=== PATIENT | female | born 1975 | race Caucasian/White ===

== ENCOUNTER 2019-08-04 07:56 | Emergency (ER) | payer BC ==
--- NOTE | 2019-08-04 08:16 | ED ---
HPI Chest Pain - HPI Summary HPI Summary: This pt is a 44 y/o female presenting to [facility] c/o left sided chest pain today. Pt reports last night when she was sleeping she felt "cramps" in her heart. She states when she got up this morning she still had these "cramps." Pt denies pain. She notes she still has the chest cramps today "on and off." Her chest cramps are aggravated with deep breaths. She reports associated symptoms of nausea. Denies diaphoresis, pain or swelling in legs, cough. Pt states she has been under a lot of stress recently because her mom is admitted in the hospital. Pt has been having panic attacks and notes she is SOB "all the time." She takes anti anxiety medications to help her sleep, medication starts with an "X" but can't remember the name. Denies any recent long car rides or recent travel. Denies recent surgeries. Denies taking any hormones. Denies hx of blood clots. Denies any other PMHx. She has never had a stress test of her heart. No FHx of heart disease. NKDA. Denies tobacco or drug use. She admits to drinking 1-2 glasses of wine every night, but has not recently since her mother has been sick. 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 Medications reviewed. Allergies noted. - History of Current Complaint Time Seen by Provider: 08/04/19 08:07 Hx Obtained From: Patient Onset/Duration: Started Hours Ago, Still Present Timing: Lasting Hours Current Severity: Mild Pain Intensity: 3 Pain Scale Used: 0-10 Numeric Chest Pain Location: Left Anterior Chest Pain Radiates: No Character: Other: - cramps Aggravating Factor(s): Deep Breaths Alleviating Factor(s): Nothing Associated Signs and Symptoms: Positive: Chest Pain, Recent Stress, Shortness of Breath, Nausea. Negative: Fever, Chills, Diaphoresis, Cough, Calf Pain/ Swelling, Edema - Allergy/Home Medications Allergies/Adverse Reactions: Allergies Allergy/AdvReac Type Severity Reaction Status Date / Time No Known Allergies Allergy Verified 08/04/19 08:02 Home Medications: Home Medications NK [No Home Medications Reported] 08/04/19 [History Confirmed 08/04/19] PMH/Surg Hx/FS Hx/Imm Hx Endocrine/Hematology History: Denies: Hx Diabetes Cardiovascular History: Denies: Hx Hypertension Musculoskeletal History: Denies: Hx Rheumatoid Arthritis, Hx Osteoporosis Psychiatric History: Reports: Hx Anxiety - Cancer History Hx Chemotherapy: No Hx Radiation Therapy: No - Surgical History Surgical History: Yes Surgery Procedure, Year, and Place: Mole removal Infectious Disease History: No Infectious Disease History: Denies: Traveled Outside the [place] in Last 30 Days - Family History Known Family History: Negative: Cardiac Disease - Social History Alcohol Use: Daily Alcohol Amount: 1-2 glasses of wine every night, but not recently Substance Use Type: Reports: None Smoking Status (MU): Never Smoked Tobacco Review of Systems Negative: Fever, Skin Diaphoresis Positive: Chest Pain Positive: Shortness Of Breath. Negative: Cough Positive: Nausea Negative: Edema, Other - NEGATIVE: pain in legs Positive: Anxious All Other Systems Reviewed And Are Negative: Yes Physical Exam - Summary Physical Exam Summary: Constitutional: Well-developed, Well-nourished, Alert. (-) Distressed Skin: Warm, Dry HENT: Normocephalic; Atraumatic Eyes: Conjunctiva normal Neck: Musculoskeletal ROM normal neck. (-) JVD, (-) Stridor, (-) Tracheal deviation Cardio: Rhythm regular, rate normal, Heart sounds normal; Intact distal pulses; The pedal pulses are 2+ and symmetric. Radial pulses are 2+ and symmetric. (-) Murmur Pulmonary/Chest wall: Effort normal. (-) Respiratory distress, (-) Wheezes, (-) Rales Abd: Soft, (-) tenderness, (-) Distension, (-) Guarding, (-) Rebound Musculoskeletal: (-) Edema. Good pulses bilaterally in radius, No calf tenderness, No venous cords, No pain with dorsiflexion of foot. Lymph: (-) Cervical adenopathy Neuro: Alert, Oriented x3 Psych: Mood and affect Normal Triage Information Reviewed: Yes Vital Signs On Initial Exam: Initial Vitals Temp Pulse Resp BP Pulse Ox 97.7 F 91 20 139/83 100 08/04/19 07:57 08/04/19 07:57 08/04/19 07:57 08/04/19 07:57 08/04/19 07:57 Vital Signs Reviewed: Yes Procedures - Sedation Patient Received Moderate/Deep Sedation with Procedure: No Diagnostics - Vital Signs Vital Signs Temp Pulse Resp BP Pulse Ox 12/20/19 07:57 97.7 F 91 20 139/83 100 - Laboratory Result Diagrams: 08/04/19 08:07 08/04/19 08:07 Lab Statement: Any lab studies that have been ordered have been reviewed, and results considered in the medical decision making process. - Radiology Chest XR Radiology Interpretation Completed By: Radiologist Summary of Radiographic Findings: IMPRESSION: No evidence for active cardiopulmonary disease. Dr. Garica has reviewed this report. - EKG 08:01 Cardiac Rate: NL - at 76 bpm EKG Rhythm: Sinus Rhythm Summary of EKG Findings: EKG at 0801 shows sinus rhythm at a rate of [address] depressions in V3-V5, II, III, and aVF. No ST elevations. 08:21 Cardiac Rate: NL - at 72 bpm EKG Rhythm: Sinus Rhythm Summary of EKG Findings: EKG at 0821 shows sinus rhythm at a rate of [address] depressions in V3-V5, II, III, and aVF. No ST elevations. Re-Evaluation - Re-Evaluation First Eval Re-Evaluation Time: 09:17 Comment: Results reviewed with patient. Chest Pain Course/Dx - Course Course Of Treatment: Patient is here with chest pain in the setting of sleep. The patient has been under a lot of stress this week due to her mother me in the hospital. Patient has 0 risk factors for ACS and is overall well- appearing. Patient's EKG did show ST depressions in the anterior and inferior leads which did not change on repeat EKG. Patient had serial troponins are negative. Patient had negative d-dimer. Patient had negative chest x-ray. Patient has a heart score of 3 and was referred to cardiology for outpatient stress test. - Diagnoses Provider Diagnoses: Chest pain Discharge ED - Sign-Out/Discharge Documenting (check all that apply): Patient Departure - Discharge home - Discharge Plan Condition: Stable Disposition: HOME Patient Education Materials: Chest Pain (ED) Referrals: Amanda Hogan MD [Primary Care Provider] - Haroldo Browne DO [Medical Doctor] - Additional Instructions: Please follow up with Dr. Browne, bit sander. Call them to get a stress test. PLEASE RETURN TO EMERGENCY DEPARTMENT FOR ANY WORSENING CHEST PAIN, TROUBLE BREATHING, PROFUSE SWEATING, OR ANY OTHER CONCERNING SYMPTOMS. - Billing Disposition and Condition Condition: STABLE Disposition: Home - Attestation Statements Document Initiated by Scribe: Yes Documenting Scribe: Herminia Ching Provider For Whom Scribe is Documenting (Include Credential): Aris Garcia MD Scribe Attestation: I, Hermniia Ching, scribed for Aris Garcia MD on 08/04/19 at 1402. Scribe Documentation Reviewed: Yes Provider Attestation: The documentation as recorded by the Herminia dexter accurately reflects the service I personally performed and the decisions made by me, Aris Garcia MD Status of Scribe Document: Viewed
[2019-08-04 08:18] LABS: ABS Lymphocytes 1.2 10^3/ul (1.0-4.8); ABS Monocytes 0.3 10^3/ul (0-0.8); ABS Neutrophils 2.2 10^3/ul (1.5-7.7); Eosinophil % 1.1 %; Hematocrit 41 % (35-47); Hemoglobin 14.1 g/dL (12.0-16.0); Lymphocyte % 32.5 %; Mean Corpuscular HGB Conc 35 g/dL (31-36); Mean Corpuscular Hemoglobin 31 pg (27-31); Mean Corpuscular Volume 91 fL (80-97); Mean Platelet Volume 6.6 fL (7.4-10.4); Platelet Count 296 10^3/uL (150-450); Red Cell Distribution Width 13 % (10-15); White Blood Count 3.8 10^3/uL (3.5-10.8)
[2019-08-04] MEDS: Nitroglycerin TAB 0.4 MG* 0.4 MG TAB SL ONE (08:22)
[2019-08-04] MEDS: Aspirin 81 mg CHEW TAB* 81 MG TAB.CHEW PO ONE (08:22)
[2019-08-04 08:25] LABS: INR 1.06 (0.82-1.09)
[2019-08-04 08:33] LABS: ALT 18 U/L (7-52); AST 20 U/L (13-39); Albumin 4.9 g/dL (3.2-5.2); Albumin/Globulin Ratio 1.8 (1-3); Alkaline Phosphatase 60 U/L (34-104); Anion Gap 10 mmol/L (2-11); BUN/Creatinine Ratio 10.6 (8-20); Blood Urea Nitrogen 9 mg/dL (6-24); CO2 Carbon Dioxide 24 mmol/L (22-32); Calcium 10.3 mg/dL (8.6-10.3); Chloride 105 mmol/L (101-111); EGFR African American 87.9 (>60); EGFR Non-African American 72.7 (>60); Globulin 2.7 g/dL (2-4); Glucose 104 mg/dL (70-100); Potassium 3.8 mmol/L (3.5-5.0); Sodium 139 mmol/L (135-145); Total Protein 7.6 g/dL (6.4-8.9)
[2019-08-04 08:52] LABS: HCG Pregnancy < 0.60 mIU/mL
[2019-08-04 12:18] VITALS: BP 123/83
== END 2019-08-04 12:20 | disposition home or self-care (01) ==
LOC: ED 07:56
DX: R07.9 Chest pain, unspecified (principal); F41.9 Anxiety disorder, unspecified
CPT/HCPCS: 36415; 71045; 80053; 84484; 84702; 85025; 85379; 85610; 93005; 99284; A9270-GY